=== PATIENT | female | born 1995 | race Two or more races ===

== ENCOUNTER 2019-11-01 22:21 | Outpatient (CLI) | payer OTHER ==
[2019-11-02] MEDS ORDERED: CEFADROXIL500 MG PO (09:56)
== END 2019-11-02 10:46 | disposition home or self-care (01) ==
LOC: OBS/DEL 22:21
DX: O47.1 False labor at or after 37 completed weeks of gestation (principal); O23.43 Unspecified infection of urinary tract in pregnancy, third trimester

== ENCOUNTER 2019-11-22 01:52 | Inpatient (IN) | payer OTHER ==
[~2019-11-22] VITALS: Ht 170.2 cm; Wt 69.4 kg
[~2019-11-22 01:52] MED LIST: CEFADROXIL500 MG PO
== END 2019-11-24 14:09 | disposition home or self-care (01) | DRG 807 ==
LOC: LDR 01:52 → OB/GYN 01:52
PROVIDERS: ADMIT Obstetrics & Gynecology
PROC: 10E0XZZ Delivery of Products of Conception, External Approach (ICD-10-PCS; principal; 2019-11-22)
PROC: 0UQMXZZ Repair Vulva, External Approach (ICD-10-PCS; 2019-11-22)
PROC: 0W8NXZZ Division of Female Perineum, External Approach (ICD-10-PCS; 2019-11-22)
PROC: 3E033VJ Introduction of Other Hormone into Peripheral Vein, Percutaneous Approach (ICD-10-PCS; 2019-11-22)
PROC: 10907ZC Drainage of Amniotic Fluid, Therapeutic from Products of Conception, Via Natural or Artificial Opening (ICD-10-PCS; 2019-11-22)
PROC: 4A1HXCZ Monitoring of Products of Conception, Cardiac Rate, External Approach (ICD-10-PCS; 2019-11-22)
DX: O71.82 Other specified trauma to perineum and vulva (principal); Z37.0 Single live birth; Z3A.40 40 weeks gestation of pregnancy; Z22.330 Carrier of Group B streptococcus